=== PATIENT | female | born 1995 | race Caucasian/White ===

== ENCOUNTER 2021-12-13 13:09 | Emergency (ER) | payer BC, MEDICAID ==
[2021-12-13] MEDS ORDERED: Sodium Chloride 0.9% 10 ML Syringe FLUSH PRN (13:23)
[2021-12-13] MEDS: Lactated Ringers 1,000 ML IV ONE (13:49)
[2021-12-13 14:19] LABS: CHLORIDE,CL 103 mmol/L (98-107); SODIUM,NA 141 mmol/L (136-145)
[2021-12-13 14:20] LABS: ANION GAP 18.1 mmol/L (5-15)
[2021-12-13 14:36] LABS: BARBITURATE SCREEN,URINE NEGATIVE (NEGATIVE); BENZODIAZEPINES SCREEN,URINE NEGATIVE (NEGATIVE); BUPRENORPHINE SCREEN,URINE NEGATIVE (NEGATIVE); METHAMPHETAMINE SCREEN, URINE NEGATIVE (NEGATIVE); THC SCREEN,URINE 50 NG/ML NEGATIVE (NEGATIVE)
[2021-12-13] MEDS: Take Home: Nitrofurantoin Monohydrate/Macrocrystalline 100 MG, 2 Cap Pack PO ONE (15:12)
== END 2021-12-13 15:15 | disposition home or self-care (01) ==
LOC: VM.ED 13:09
DX: R07.89 Other chest pain (principal); N39.0 Urinary tract infection, site not specified; R55 Syncope and collapse; E86.0 Dehydration; Z91.018 Allergy to other foods
CPT/HCPCS: 80053; 80305-QW; 81001; 81025; 83735; 84100; 84443; 84484; 85025; 85379; 85610; 85730; 86140; 87086; 93005; 93010; 96360; 99284; 99285-25; A9270-GY; J7120

== ENCOUNTER 2023-12-10 20:14 | Emergency (ER) | payer OTHER | END 2023-12-10 20:42 | disposition home or self-care (01) | LOC: VM.ED 20:14 | DX: S46.911A Strain of unspecified muscle, fascia and tendon at shoulder and upper arm level, right arm, initial encounter (principal); Z91.018 Allergy to other foods; Z91.048 Other nonmedicinal substance allergy status; Z79.51 Long term (current) use of inhaled steroids; Z79.899 Other long term (current) drug therapy; X50.1XXA Overexertion from prolonged static or awkward postures, initial encounter; Y93.89 Activity, other specified | CPT/HCPCS: 73030-RT; 99283 ==

== ENCOUNTER 2024-07-17 18:18 | Emergency (ER) | payer OTHER | END 2024-07-17 19:19 | disposition home or self-care (01) | LOC: VM.ED 18:18 | DX: S63.502A Unspecified sprain of left wrist, initial encounter (principal); Z91.018 Allergy to other foods; Z91.048 Other nonmedicinal substance allergy status; Z79.899 Other long term (current) drug therapy; X58.XXXA Exposure to other specified factors, initial encounter | CPT/HCPCS: 73110-LT; 99283; 99284 ==